=== PATIENT | male | born 1950 | race Caucasian/White ===

== ENCOUNTER 2016-09-03 10:49 | Emergency (ER) | payer BC, OTHER ==
[~2016-09-03] VITALS: Ht 172.7 cm; Wt 83.9 kg
[2016-09-03 10:49] VITALS: BP_SYST 0; PULSE 0
[~2016-09-03 10:49] MED LIST: ATROPINE SULFATE 1 MG/10 ML SYRINGE IVP ONE; CALCIUM CHLORIDE 1 GM/10 ML DISP.SYRIN (14 mEq Ca++/SYR) ONE; EPINEPHrine JECT 1 MG/10 ML SYR ONE; SODIUM BICARBONATE 8.4% JECT 50 MEQ/50 ML SYRINGE ONE
--- NOTE | 2016-09-03 10:49 | NUR ---
Pt to bed 1. BIB SQ 61. ER physician at bedside. In full arrest, CPR in progress. BVM ventilation being assisted by paramedics. IV started in field. 7 epi, 1 bicarb given in field. Zero shocks performed in field. Code blue called. Please see code blue sheet. Pt has been down since 1000 at home. CPR initiated by immediatly after pt collapsed supine. rolled pt over and began CPR. EMS arrived @1005.
--- NOTE | 2016-09-03 10:49 | NUR ---
ER at bedside examining patient.
--- NOTE | 2016-09-03 10:50 | NUR ---
SEE CODE SHEET COMPLETED AND PLACED IN CHART
[2016-09-03] MEDS ORDERED: EPINEPHrine JECT 1 MG/10 ML SYR ONE (11:09)
--- NOTE | 2016-09-03 11:34 | NUR ---
Patient moved to bed 6
--- NOTE | 2016-09-03 11:54 | NUR ---
[facility] [employer] called contacted by self. Spoke with [email or web address] Case # given. Family notified at bedside.
--- NOTE | 2016-09-03 12:06 | NUR ---
[facility] Case # [id number].
--- NOTE | 2016-09-03 12:23 | NUR ---
Social Service Note: INSTRUCTION ASSISTANT PRINCIPAL met with pt's in ED; INSTRUCTION ASSISTANT PRINCIPAL stayed with pt's while CPR was preformed; emotional support was provided. Pt's son arrived; emotional support provided. INSTRUCTION ASSISTANT PRINCIPAL stayed with pt's family in ED. Pt's states that they have no mortuary arrangements made but she states that pt's wishes were to be cremated. Pt's states that they have used [employer] in the past for other family members and thinks she will use them. [facility] has provided pt's with a list of mortuaries and offered to make phone calls as needed; pt's states that she will look over the list and alert INSTRUCTION ASSISTANT PRINCIPAL or pt's nurse once a mortuary has been selected. INSTRUCTION ASSISTANT PRINCIPAL will remain available for support and will follow up as needed. Addendum: 09/03/16 at 1353 by Noy John LCSW Pt's [facility] [address] [place], [place]- . [facility] has updated pt's nurse and charge nurse. [facility] updated pt's family on pick up and delivery driver time in one and half to two hours. INSTRUCTION ASSISTANT PRINCIPAL will remain available for support and will follow up as needed.
--- NOTE | 2016-09-03 13:50 | NUR ---
called [facility] per family request, states 1.5-2hr ETA.
--- NOTE | 2016-09-03 14:28 | NUR ---
[facility] CALLED BACK AND WILL NOT MOVE FORWARD
--- NOTE | 2016-09-03 16:00 | NUR ---
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
[2016-09-03 16:30] VITALS: BP_SYST 0; PULSE 0
== END 2016-09-03 16:30 | disposition expired ==
LOC: SED 10:49
DX: I46.9 Cardiac arrest, cause unspecified (principal); I10 Essential (primary) hypertension; N40.0 Benign prostatic hyperplasia without lower urinary tract symptoms
CPT/HCPCS: 31500; 92950; 99285; J0171; J0461